=== PATIENT | female | born 1970 | race Caucasian/White ===

== ENCOUNTER 2025-03-01 09:45 | Outpatient (RCR) | payer BC, SELFPAY | END 2025-06-29 23:59 | disposition home or self-care (01) | PROVIDERS: PCP Family Medicine; Visit Provider Family Medicine | DX: N81.9 Female genital prolapse, unspecified (principal); N39.3 Stress incontinence (female) (male); M62.81 Muscle weakness (generalized); Z51.89 Encounter for other specified aftercare | CPT/HCPCS: 97110; 97112; 97162; 97535 ==